=== PATIENT | male | born 1965 | race Caucasian/White ===

== ENCOUNTER 2016-08-21 11:21 | Day surgery (SDC) | payer OTHER ==
[~2016-08-21] VITALS: Ht 170.2 cm; Wt 65.0 kg
--- NOTE | ~2016-08-21 | ECH ---
Transesophageal Echocardiography Report (HAN) Demographics Patient Name MALGORZATA MALONE Date of Study 08/21/2016 RAY Patient Number [id number] Visit Number [id number] Date of 1965 Room Number Accession Number [id number] Gender Male Age 51 year(s) Referring Nisha ANGELA Log Getter Vidhi Scanlon [facility] Physician Zaheer Jeff PAC Physician Interpreting Nisha Schwab Portfolio Administrator Physician Supervising Ordering Physician Nisha Schwab MD/P Nurse Stress Radar Signal Processing Engineer Conclusions Summary Informed consent obtained. Transesophageal echocardiogram was done under moderate sedation . The estimated left ventricular ejection fraction is 60-65%. There is no thrombus in the left atrial appendage. bubble study was done, there is no evidence for a PFO or ASD. Moderate prolapse of both mitral valve leaflet(s). Moderate eccentric mitral regurgitation by color Doppler. Normal aortic valve structure and function. Normal tricuspid valve structure and function. Mild tricuspid regurgitation by color Doppler. Recommendation The patient will be given the results of this study by the physician who ordered the exam. Procedure Type of Study HAN procedure:HAN SF. Procedure Date Date: 08/21/2016 Start: 02:07 PM Technical Quality: Adequate visualization Indications:Mitral valve prolapse and Mitral Regurgation. Additional Indications:Retinal artery occlusion Appropriate Use Criteria: 9 Height: 67 inches Weight: 143 pounds BSA: 1.75 m Rhythm: NSR HR: 84 bpm BP: 145/84 mmHg O2 Saturation: 95 % HAN Performed By: Zaheer Cameron MD Type of Anesthesia: Moderate sedation Findings Left Ventricle Normal interventricular septum Left Atrium There is no thrombus in the left atrial appendage. Informed consent was obtained, bubble study was done, there is no evidence for a PFO or ASD. Mitral Valve Moderate prolapse of both mitral valve leaflet(s). Moderate eccentric mitral regurgitation by color Doppler. Aortic Valve Normal aortic valve structure and function. Tricuspid Valve Normal tricuspid valve structure and function. Mild tricuspid regurgitation by color Doppler. Pulmonic Valve The pulmonic valve is not well visualized. Miscellaneous Normal aorta. Contractility Score LV regional wall motion:(0-Non visualized 1-Normal 2-Hypokinesis 3-Akinesis 4-Dyskinesis 5-Aneurysm) Signature
== END 2016-08-21 13:14 | disposition home or self-care (01) ==
LOC: SSS 11:21
DX: I08.1 Rheumatic disorders of both mitral and tricuspid valves (principal); I34.1 Nonrheumatic mitral (valve) prolapse; H34.232 Retinal artery branch occlusion, left eye; Z87.442 Personal history of urinary calculi; Z98.890 Other specified postprocedural states